=== PATIENT | male | born 1950 | race Caucasian/White ===

== ENCOUNTER 2023-12-25 12:58 | Outpatient (CLI) | payer MEDICARE, OTHER, SELFPAY | END 2023-12-25 12:59 | disposition home or self-care (01) | LOC: ANHBWCAUD 12:59 | PROVIDERS: PCP Family Medicine; Visit Provider Otolaryngology | DX: H90.3 Sensorineural hearing loss, bilateral (principal); H69.91 Unspecified Eustachian tube disorder, right ear | CPT/HCPCS: 92557; 92567 ==

== ENCOUNTER 2024-09-25 12:30 | Outpatient (CLI) | payer MEDICARE, OTHER, SELFPAY ==
--- NOTE | ~2024-09-25 | CT_ITS ---
EXAMINATION: CT IAC/mastoids BI wo con DATE: 09/25/2024 13:08 INDICATION: Unspecified eustachian tube disorder. Cholesteatoma of attic of right ear. TECHNIQUE: Computed tomography (CT) of the temporal bones was performed without intravenous contrast. Automated exposure control and iterative reconstruction technique were employed. The dose-length pro duct was 264.01 mGy-cm. COMPARISON: None FINDINGS: There is anteroposterior elongation of the ocular globes. There are likely changes of ocula r lens replacement surgeries. There is mild mucosal thickening in the paranasal sinuses. RIGHT TEMPORAL BONE: The internal auditory canal, cochlea, vestibule, semicircular canals, vestibular aqueduct, carotid ca nal, jugular bulb, facial nerve course, ossicles, Prussak space, and scutum are normal. In the right external auditory canal, there is a 15 x 9 x 7 mm mass associated with erosions of the posterior wall of the external auditory canal. The mass abuts the tympanic membrane. There is a small right mastoid effusion. LEFT TEMPORAL BONE: The internal auditory canal, cochlea, vestibule, semicircular canals, vestibular aqueduct, carotid ca nal, jugular bulb, facial nerve course, ossicles, Prussak space, scutum, tympanic membrane, mastoid a ir cells, and external auditory canal are normal. IMPRESSION: 1. 15 mm mass in right external auditory canal abutting the tympanic membrane associated with erosion s of bone, which may be a cholesteatoma. Reviewed, dictated and finalized at location [] IMPRESSION: 1. 15 mm mass in right external auditory canal abutting the tympanic membrane a ssociated with erosions of bone, which may be a cholesteatoma.
== END 2024-09-25 12:31 | disposition home or self-care (01) ==
LOC: MICIMG 12:31
PROVIDERS: PCP Family Medicine; Visit Provider Otolaryngology
DX: H69.91 Unspecified Eustachian tube disorder, right ear (principal); H71.01 Cholesteatoma of attic, right ear
CPT/HCPCS: 70480